=== PATIENT | male | born 1945 | race Caucasian/White ===

== ENCOUNTER 2017-06-11 11:54 | Emergency (ER) | payer MEDICARE, OTHER ==
[2017-06-11] MEDS ORDERED: Balanced Salt Solution Ophth Irrig 30 ML Bottle ONE (12:15)
[2017-06-11] MEDS ORDERED: Tetracaine HCl/PF 0.5% 4 ML Bottle ONE (12:15)
[2017-06-11] MEDS ORDERED: Acetaminophen/HYDROcodone 325-5 MG Tab PO ONE (12:31)
--- NOTE | 2017-06-11 12:38 | EDM.PDOC ---
ED HPI GENERAL MEDICAL PROBLEM - General Chief Complaint: Eye Problems Stated Complaint: eye pain Time Seen by Provider: 06/11/17 12:10 Source of Information: Reports: Patient History Limitations: Reports: No Limitations - History of Present Illness INITIAL COMMENTS - FREE TEXT/NARRATIVE: Patient is a 72-year-old who was brought in by family with chief complaint of left eye pain state pain is about 8 out of 10 a patient states that this has been going on for about 2 weeks but not as severe and after a couple hours with a contact lens it disappears but today it intensify he remove the lens and the pain was 8 out of 10 he came in for evaluation evaluation revealed laceration of cornea. 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 - Related Data Allergies Allergy/AdvReac Type Severity Reaction Status Date / Time No Known Allergies Allergy Verified 06/11/17 12:03 Home Meds: Home Meds Aspirin 325 mg PO DAILY 06/11/17 [History] Meloxicam 15 mg PO DAILY 06/11/17 [History] Pramipexole [Mirapex] 1 mg PO BID 06/11/17 [History] Ranitidine HCl [Ranitidine] 150 mg PO BID 06/11/17 [History] Rosuvastatin [Crestor] 20 mg PO DAILY 06/11/17 [History] ED ROS GENERAL - Review of Systems Review Of Systems: See Below Constitutional: Reports: No Symptoms HEENT: Reports: Contact Lenses, Eye Pain Respiratory: Reports: No Symptoms Cardiovascular: Reports: No Symptoms Endocrine: Reports: No Symptoms GI/Abdominal: Reports: No Symptoms : Reports: No Symptoms Musculoskeletal: Reports: No Symptoms Skin: Reports: No Symptoms Neurological: Reports: No Symptoms ED EXAM GENERAL W FULL EYE - Physical Exam Exam: See Below Exam Limited By: No Limitations General Appearance: Alert, WD/WN, Moderate Distress Eye Exam: Left Eye: Corneal Abrasion (At 9:00), Bilateral Eye: Abnormal EOM, Abnormal Pupil, Normal Inspection Eyelids: Bilateral: Normal Appearance Conjunctiva & Sclera: Right: Conjunctival Edema, Discharge Cornea Exam: Right: Examined with Flourescein (Corneal abrasion), Left: Corneal Abrasion Extraocular Movements: Bilateral: Intact Pupils: Normal Accommodation Pupillary Size: Bilateral: 3 mm Pupillary Reaction: Bilateral: Brisk Ears: Normal External Exam, Normal Canal, Hearing Grossly Normal, Normal TMs Nose: Normal Inspection, Normal Mucosa, No Blood Throat/Mouth: Normal Inspection, Normal Lips, Normal Teeth, Normal Gums, Normal Oropharynx, Normal Voice, No Airway Compromise Head: Atraumatic, Normocephalic Neck: Normal Inspection, Supple, Non-Tender, Full Range of Motion Respiratory/Chest: No Respiratory Distress, Lungs Clear, Normal Breath Sounds, No Accessory Muscle Use, Chest Non-Tender Cardiovascular: Normal Peripheral Pulses, Regular Rate, Rhythm, No Edema, No Gallop, No JVD, No Murmur, No Rub GI/Abdominal: Normal Bowel Sounds, Soft, Non-Tender, No Organomegaly, No Distention, No Abnormal Bruit, No Mass (Male) Exam: Deferred Rectal (Males) Exam: Deferred Back Exam: Normal Inspection, Full Range of Motion, NT Extremities: Normal Inspection, Normal Range of Motion, Non-Tender, Normal Capillary Refill, No Pedal Edema Neurological: Alert, Oriented, CN II-XII Intact, Normal Cognition, Normal Gait, Normal Reflexes, No Motor/Sensory Deficits Psychiatric: Normal Affect, Normal Mood Skin Exam: Warm, Dry, Intact, Normal Color, No Rash Course - Vital Signs Last Recorded V/S: Last Vital Signs Temp 98.6 F 06/11/17 11:54 Pulse 66 06/11/17 11:54 Resp 16 06/11/17 11:54 BP 152/79 H 06/11/17 11:54 Pulse Ox 95 06/11/17 11:54 - Orders/Labs/Meds Orders: Active Orders 24 hr Category Date Time Status Acetaminophen/HYDROcodone [[place] 325-5 MG] Med 06/11/17 12:31 Once 2 tab PO ONETIME ONE Gentamicin [[place] 0.3% Ophth Oint] Med 06/11/17 18:00 Active 1 gm EYELF TID Medication Orders Gentamicin Sulfate ([place] 0.3% Ophth Oint) 1 gm EYELF TID [facility] Meds: Medications Generic Name Dose Route Start Last Admin Trade Name Chuyq PRN Reason Stop Dose Admin Gentamicin Sulfate 1 gm 06/11/17 18:00 Gentak 0.3% Ophth Oint EYELF TID JANNA Discontinued Medications Generic Name Dose Route Start Last Admin Trade Name Jeanne PRN Reason Stop Dose Admin Balanced Salt Solution Confirm 06/11/17 12:15 06/11/17 12:28 Eye Stream Eye Rinse Administered 06/11/17 12:16 15 ml Dose Administration 30 ml .ROUTE .STK-MED ONE Tetracaine HCl Confirm 06/11/17 12:15 06/11/17 12:27 Tetracaine 0.5% Steri-Unit Dorys Administered 06/11/17 12:16 2 drop Dose Administration 4 ml .ROUTE .STK-MED ONE Departure - Departure Time of Disposition: 12:44 Disposition: Home, Self-Care 01 Condition: Fair Clinical Impression: Corneal abrasion Corneal abrasion due to contact lens Qualifiers: Laterality: left Qualified Code(s): H18.822 - Corneal disorder due to contact lens, left eye - Discharge Information Instructions: Corneal Abrasion, [id number] Referrals: PCP,Unknown [Primary Care Provider] - Care Plan Goals: Patient will be sent home on an eye patch with gentamicin ointment to apply every 4 hours every 6 hours also will send him home with tramadol for pain relief - My Orders Last 24 Hours: My Active Orders 06/11/17 12:31 Acetaminophen/HYDROcodone [[place] 325-5 MG] 2 tab PO ONETIME ONE 06/11/17 18:00 Gentamicin [[place] 0.3% Ophth Oint] 1 gm EYELF TID - Assessment/Plan Last 24 Hours: My Active Orders 06/11/17 12:31 Acetaminophen/HYDROcodone [[place] 325-5 MG] 2 tab PO ONETIME ONE 06/11/17 18:00 Gentamicin [[place] 0.3% Ophth Oint] 1 gm EYELF TID
== END 2017-06-11 13:15 | disposition home or self-care (01) ==
LOC: LL.ED 11:54
DX: H18.822 Corneal disorder due to contact lens, left eye (principal); Z79.82 Long term (current) use of aspirin; Z79.899 Other long term (current) drug therapy
CPT/HCPCS: 99283; A9270-GY

== ENCOUNTER → 2019-01-31 | Outpatient (CLI) | payer OTHER, MEDICARE | LOC: LL.DI 11:15 | PROVIDERS: ATTEND Physician Assistant | DX: M25.511 Pain in right shoulder (principal); G89.29 Other chronic pain; M19.011 Primary osteoarthritis, right shoulder | CPT/HCPCS: 73030-RT ==

== ENCOUNTER 2020-08-04 08:48 | Emergency (ER) | payer OTHER, MEDICARE ==
--- NOTE | 2020-08-04 09:09 | EDM.PDOC ---
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 had him come in today to get the wound checked as it was "kind of deep". 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(s) Right Arm Pain Score (Numeric/FACES): 3 - Related Data Allergies Allergy/AdvReac Type Severity Reaction Status Date / Time No Known Allergies Allergy Verified 08/04/20 08:49 Home Meds: Home Meds Aspirin 325 mg PO DAILY 06/11/17 [History] Meloxicam 15 mg PO DAILY 06/11/17 [History] Pramipexole [Mirapex] 1 mg PO BID 06/11/17 [History] Rosuvastatin [Crestor] 20 mg PO DAILY 06/11/17 [History] Omeprazole 20 mg PO DAILY 08/04/20 [History] Past Medical History HEENT History: Reports: Impaired Vision Review of Systems - Review of Systems Review Of Systems: See Below Constitutional: Reports: No Symptoms Skin: Reports: Other (right arm laceration) Neurological: Reports: No Symptoms. Denies: Numbness, Tingling, Weakness Psychiatric: Reports: No Symptoms ED EXAM, GENERAL - Physical Exam Exam: See Below General Appearance: Alert, WD/WN, No Apparent Distress Eye Exam: Bilateral Eye: EOMI, PERRL Ears: Hearing Grossly Normal Head: Atraumatic, Normocephalic Neck: Supple Respiratory/Chest: No Respiratory Distress Extremities: Other (2.5 cm laceration inner right forearm/mid section No deformity. Tendon function intact. ) Neurological: Alert, Oriented, Normal Cognition, Normal Gait, No Motor/Sensory Deficits Psychiatric: Normal Affect, Normal Mood Skin Exam: Warm ED TRAUMA EXTREMITY PROCEDURES - Laceration/Wound Repair Right Lower Ventral Arm Lac/Wound Length In cm: 2.5 Appearance: Subcutaneous, Linear, Clean Distal NVT: Neuro & Vascular Intact, No Tendon Injury Anesthetic Type: Local Local Anesthesia - Lidocaine (Xylocaine): 1% Plain Local Anesthetic Volume: 2cc Skin Prep: Providone-Iodine (Betadine) Exploration/Debridement/Repair: Wound Explored, In a Bloodless Field, No Foreign Material Found Closed With: Sutures Suture Size: 3-0 # of Sutures: 3 Suture Type: Nylon, Interrupted Sterile Dressing Applied: Nurse Tetanus Status Addressed: Yes Complications: No Course - Vital Signs Last Recorded V/S: Last Vital Signs Temp 36.6 C 08/04/20 08:53 Pulse 58 L 08/04/20 08:53 Resp 18 08/04/20 08:53 BP 118/64 08/04/20 08:53 Pulse Ox 95 08/04/20 08:53 - Orders/Labs/Meds Orders: Active Orders 24 hr Category Date Time Status Vaccines to be Administered [RC] PER UNIT ROUTINE Care 08/04/20 10:34 Active Meds: Medications Discontinued Medications Generic Name Dose Route Start Last Admin Trade Name Jeanne PRN Reason Stop Dose Admin Diphtheria/Tetanus/Acell Pertussis 0.5 ml 08/04/20 10:33 08/04/20 10:36 Diphtheria,Pertussis(Acell),Tetanus Vaccine 0.5 Ml Syringe IM 08/04/20 10:34 0.5 ml .ONCE ONE Administration Lidocaine HCl 5 ml 08/04/20 10:38 08/04/20 10:42 Lidocaine 1% 5 Ml Sdv INJECT 08/04/20 10:39 5 ml ONETIME ONE Administration Neomycin/Polymyxin/Bacitracin 1 each 08/04/20 10:51 08/04/20 10:52 Bacitracin/Neomycin/Polymyxin B Oint 0.9 Gm U/D Packet TOP 08/04/20 10:52 1 each ONETIME ONE Administration Neomycin/Polymyxin/Bacitracin Confirm 08/04/20 10:51 08/04/20 10:53 Bacitracin/Neomycin/Polymyxin B Oint 0.9 Gm U/D Packet Administered 08/04/20 10:52 Not Given Dose 1 each .ROUTE .STK-MED ONE - Re-Assessments/Exams Free Text/Narrative Re-Assessment/Exam: 08/04/20 11:10 Wound less than 12 hours old. Soaked extensively in Betadine solution. Three interrupted sutures placed for wound closure. Tetanus updated. Wound care reviewed. Signs of infection reviewed. To have sutures out next Tuesday. To follow up this week as needed if any concerns/signs of infection develop. Departure - Departure Time of Disposition: 11:04 Disposition: Home, Self-Care 01 Condition: Good Clinical Impression: Forearm laceration Qualifiers: Encounter type: initial encounter Laterality: right Qualified Code(s): S51.811A - Laceration without foreign body of right forearm, initial encounter - Discharge Information *COPY OF PRESCRIPTION DRUG MONITORING REPORT IN PATIENT JEOVANY: Not Applicable Instructions: Laceration Care, Adult, [id number] Referrals: PCP,Unknown [Primary Care Provider] - Forms: ED Department Discharge Additional Instructions: Sutures out next Tuesday! We take them out for no additional cost at the hospital clinic. Call and arrange time to come in. Follow up as needed if you have any problems/concerns such as signs of infection as we discussed. Call if you have questions. Sepsis Event Note (ED) - Evaluation Sepsis Screening Result: No Definite Risk - Focused Exam Vital Signs: Vital Signs Temp Pulse Resp BP Pulse Ox 08/04/20 08:53 36.6 C 58 L 18 118/64 95 - My Orders Last 24 Hours: My Active Orders 08/04/20 10:34 Vaccines to be Administered [RC] PER UNIT ROUTINE - Assessment/Plan Last 24 Hours: My Active Orders 08/04/20 10:34 Vaccines to be Administered [RC] PER UNIT ROUTINE
[2020-08-04] MEDS: Diphtheria,Pertussis(Acell),Tetanus Vaccine 0.5 ML Syringe IM ONE (10:36)
[2020-08-04] MEDS: Bacitracin/Neomycin/Polymyxin B Oint 0.9 GM U/D Packet TOP ONE (10:52)
[2020-08-04] MEDS: Bacitracin/Neomycin/Polymyxin B Oint 0.9 GM U/D Packet ONE (10:53)
== END 2020-08-04 11:14 | disposition home or self-care (01) ==
LOC: LL.ED 08:48
DX: S51.811A Laceration without foreign body of right forearm, initial encounter (principal); Z79.82 Long term (current) use of aspirin; Z79.899 Other long term (current) drug therapy; Z23 Encounter for immunization; W26.8XXA Contact with other sharp object(s), not elsewhere classified, initial encounter
CPT/HCPCS: 12001; 90471; 90715; 99282-25; 99283

== ENCOUNTER 2020-12-13 17:55 | Emergency (ER) | payer OTHER, MEDICARE ==
--- NOTE | 2020-12-13 19:03 | EDM.PDOC ---
ED HPI GENERAL MEDICAL PROBLEM - General Chief Complaint: General Stated Complaint: SOB, fevers Time Seen by Provider: 12/13/20 18:45 Source of Information: Reports: Patient, Family History Limitations: Reports: No Limitations - History of Present Illness INITIAL COMMENTS - FREE TEXT/NARRATIVE: He presents to the emergency department for evaluation of fever and not feeling well. Been feeling very hot and measured a temperature of 99.8 at home. He reports headache, nasal congestion, sore throat, cough with whitish sputum, diffuse body aches and fatigue. No nausea, vomiting or diarrhea. No dysuria, urgency or frequency. Symptoms of been present for 3 days. He is a patient at the [facility]. He talked with them earlier this afternoon and was told to come to the ER. He has a history of coronary artery disease. Generalized Pain Score (Numeric/FACES): 5 - Related Data Allergies Allergy/AdvReac Type Severity Reaction Status Date / Time No Known Allergies Allergy Verified 12/13/20 18:58 Home Meds: Home Meds Aspirin 325 mg PO DAILY 06/11/17 [History] Meloxicam 15 mg PO DAILY 06/11/17 [History] Pramipexole [Mirapex] 1 mg PO BID 06/11/17 [History] Rosuvastatin [Crestor] 20 mg PO DAILY 06/11/17 [History] Omeprazole 20 mg PO DAILY 08/04/20 [History] Past Medical History HEENT History: Reports: Hard of Hearing, Impaired Vision ED ROS GENERAL - Review of Systems Review Of Systems: See Below Constitutional: Reports: Fever, Chills HEENT: Reports: Ear Pain, Nose Pain, Throat Pain Respiratory: Reports: Shortness of Breath, Cough Cardiovascular: Denies: Chest Pain, Palpitations Endocrine: Reports: Fatigue GI/Abdominal: Denies: Abdominal Pain, Diarrhea, Nausea, Vomiting : Denies: Dysuria, Frequency, Urgency Musculoskeletal: Reports: Muscle Pain Skin: Reports: No Symptoms Neurological: Denies: Confusion, Dizziness ED EXAM, GENERAL - Physical Exam Exam: See Below Exam Limited By: No Limitations General Appearance: Alert, WD/WN, No Apparent Distress Ears: Normal External Exam, Normal Canal, Hearing Grossly Normal, Normal TMs Nose: Normal Inspection, Normal Mucosa, No Blood Throat/Mouth: Normal Inspection, Normal Lips, Normal Teeth, Normal Gums, Normal Oropharynx, No Airway Compromise Head: Atraumatic, Normocephalic Neck: Supple. No: Lymphadenopathy (L), Lymphadenopathy (R) Respiratory/Chest: No Respiratory Distress, Lungs Clear, Normal Breath Sounds Cardiovascular: Regular Rate, Rhythm, No Murmur GI/Abdominal: Normal Bowel Sounds, Soft, Non-Tender #1 Interpretation EKG Date: 12/13/20 Time: 20:00 EKG Interpretation Comments: Accelerated junctional rhythm. No ST or T wave changes. No apparent acute process. Possible old anterior infarct. Course - Vital Signs Last Recorded V/S: Last Vital Signs Temp 37.1 C 12/13/20 17:56 Pulse 64 12/13/20 19:28 Resp 31 H 12/13/20 19:28 BP 136/63 12/13/20 19:28 Pulse Ox 91 L 12/13/20 19:28 - Orders/Labs/Meds Orders: Active Orders 24 hr Category Date Time Status EKG Documentation Completion [RC] ASDIRECTED Care 12/13/20 19:46 Active Chest 1V Frontal [CR] Stat Exams 12/13/20 19:45 Taken Isolation [COMM] Routine Oth 12/13/20 18:58 Active Labs: Laboratory Tests 12/13/20 12/13/20 12/13/20 Range/Units 18:57 19:10 19:10 WBC 6.0 (4.0-10.2) K/uL RBC 3.89 L (4.33-5.41) M/uL Hgb 11.8 L (13.1-16.8) g/dL Hct 36.4 L (39.0-49.0) % MCV 93.6 (84.0-98.0) fL MCH 30.3 (28.2-33.3) pg MCHC 32.4 (31.7-36.0) g/dL RDW 15.6 H (11.2-14.1) % Plt Count 128 L (150-350) K/uL Neut % (Auto) 77.4 (45.0-80.0) % Lymph % (Auto) 14.9 (10.0-50.0) % [place] % (Auto) 7.5 (2.0-14.0) % Eos % (Auto) 0.0 (0.0-5.0) % Baso % (Auto) 0.2 (0.0-2.0) % Neut # (Auto) 4.67 (1.40-7.00) K/uL Lymph # (Auto) 0.90 (0.50-3.50) K/uL [place] # (Auto) 0.45 (0.00-1.00) K/uL Eos # (Auto) 0.00 (0.00-0.50) K/uL Baso # (Auto) 0.01 (0.00-0.20) K/uL Sodium 141 (136-145) mmol/L Potassium 3.9 (3.5-5.1) mmol/L Chloride 105 (98-107) mmol/L Carbon Dioxide 28.6 (21.0-32.0) mmol/L Anion Gap 7.4 (7-15) meq/L BUN 18 (7-18) mg/dL Creatinine 1.11 (0.51-1.17) mg/dL Est Cr Clr Drug Dosing 59.27 mL/min Estimated GFR (MDRD) > 60 mL/min Glucose 86 (70-99) mg/dL Calcium 8.2 L (8.5-10.1) mg/dL Total Bilirubin 0.9 (0.2-1.0) mg/dL AST 53 H (15-37) U/L ALT 56 (12-78) U/L Alkaline Phosphatase 53 (46-116) IU/L Troponin I High Sens (<=76) ng/L NT-Pro-B Natriuret Pep (0-125) pg/mL Total Protein 6.7 (6.4-8.2) g/dL Albumin 3.4 (3.4-5.0) g/dL SARS-CoV-2 RNA ([facility]) Positive H (NEGATIVE) 12/13/20 Range/Units 19:10 WBC (4.0-10.2) K/uL RBC (4.33-5.41) M/uL Hgb (13.1-16.8) g/dL Hct (39.0-49.0) % MCV (84.0-98.0) fL MCH (28.2-33.3) pg MCHC (31.7-36.0) g/dL RDW (11.2-14.1) % Plt Count (150-350) K/uL Neut % (Auto) (45.0-80.0) % Lymph % (Auto) (10.0-50.0) % [place] % (Auto) (2.0-14.0) % Eos % (Auto) (0.0-5.0) % Baso % (Auto) (0.0-2.0) % Neut # (Auto) (1.40-7.00) K/uL Lymph # (Auto) (0.50-3.50) K/uL [place] # (Auto) (0.00-1.00) K/uL Eos # (Auto) (0.00-0.50) K/uL Baso # (Auto) (0.00-0.20) K/uL Sodium (136-145) mmol/L Potassium (3.5-5.1) mmol/L Chloride (98-107) mmol/L Carbon Dioxide (21.0-32.0) mmol/L Anion Gap (7-15) meq/L BUN (7-18) mg/dL Creatinine (0.51-1.17) mg/dL Est Cr Clr Drug Dosing mL/min Estimated GFR (MDRD) mL/min Glucose (70-99) mg/dL Calcium (8.5-10.1) mg/dL Total Bilirubin (0.2-1.0) mg/dL AST (15-37) U/L ALT (12-78) U/L Alkaline Phosphatase (46-116) IU/L Troponin I High Sens 33 (<=76) ng/L NT-Pro-B Natriuret Pep 215 H (0-125) pg/mL Total Protein (6.4-8.2) g/dL Albumin (3.4-5.0) g/dL SARS-CoV-2 RNA ([facility]) (NEGATIVE) - Radiology Interpretation Free Text/Narrative:: Portable chest x-ray shows normal cardiac silhouette. No significant infiltrates. No free air. - Re-Assessments/Exams Free Text/Narrative Re-Assessment/Exam: Patient was placed on oxygen and did feel his breathing improved, although he was saturating in the low 90s on arrival. Because of his complaining of some tightness in the chest did check EKG and cardiac enzymes which were unremarkable. A BNP was slightly elevated. Covid test was positive. Influenza was negative. Labs were otherwise unremarkable. Will discharge to home with home quarantine. Departure - Departure Time of Disposition: 20:35 Disposition: Home, Self-Care 01 Condition: Good Clinical Impression: COVID-19 - Discharge Information *PRESCRIPTION DRUG MONITORING PROGRAM REVIEWED*: Not Applicable *COPY OF PRESCRIPTION DRUG MONITORING REPORT IN PATIENT JEOVANY: Not Applicable Instructions: COVID-19 Frequently Asked Questions Forms: ED Department Discharge Care Plan Goals: Quarantine at home until symptoms have been gone for 1 week. Push fluids. Resume usual home medications. Call or follow-up if symptoms are worsening. Sepsis Event Note (ED) - Evaluation Sepsis Screening Result: No Definite Risk - Focused Exam Vital Signs: Vital Signs Temp Pulse Resp BP Pulse Ox 12/13/20 19:28 64 31 H 136/63 91 L 12/13/20 17:56 37.1 C 68 28 H 117/52 L 92 L - Problem List & Annotations (1) COVID-19 SNOMED Code(s): 653731192 Code(s): U07.1 - COVID-19 Status: Acute Current Visit: Yes - My Orders Last 24 Hours: My Active Orders 12/13/20 18:58 Isolation [COMM] Routine 12/13/20 19:45 Chest 1V Frontal [CR] Stat 12/13/20 19:46 EKG Documentation Completion [RC] ASDIRECTED - Assessment/Plan Last 24 Hours: My Active Orders 12/13/20 18:58 Isolation [COMM] Routine 12/13/20 19:45 Chest 1V Frontal [CR] Stat 12/13/20 19:46 EKG Documentation Completion [RC] ASDIRECTED Plan: Quarantine at home until symptoms have been gone for 1 week. Push fluids. Resume usual home medications. Call or follow-up if symptoms are worsening.
[2020-12-13 19:35] LABS: ANION GAP 7.4 meq/L (7-15); CHLORIDE,CL 105 mmol/L (98-107); SODIUM,NA 141 mmol/L (136-145)
== END 2020-12-13 20:45 | disposition home or self-care (01) ==
LOC: LL.ED 17:55
DX: U07.1 COVID-19 (principal); Z79.82 Long term (current) use of aspirin; Z79.899 Other long term (current) drug therapy
CPT/HCPCS: 36415; 71045; 80053; 83880; 84484; 85025; 87804; 93005; 93010; 99284; 99284-25; U0002

== ENCOUNTER 2020-12-15 11:17 | Inpatient (IN) | payer OTHER, MEDICARE ==
[2020-12-15] MEDS ORDERED: EPINEPHrine 1 MG/1 ML Amp IM PRN (11:30)
[2020-12-15] MEDS ORDERED: methylPREDNISolone Sodium Succinate 125 MG/2 ML SDV IVPUSH PRN (11:30)
[2020-12-15] MEDS ORDERED: Famotidine 20 MG/2 ML SDV IVPUSH PRN (11:30)
[2020-12-15] MEDS ORDERED: diphenhydrAMINE 50 MG/ML SDV IVPUSH PRN (11:30)
--- NOTE | 2020-12-15 13:32 | PCM.HP.2 ---
H&P History of Present Illness - General Date of Service: 12/15/20 Admit Problem/Dx: Admission Diagnosis/Problem Admission Diagnosis/Problem Shortness of breath Source of Information: Patient History Limitations: Reports: No Limitations - History of Present Illness Initial Comments - Free Text/Narative: He was seen in the emergency department 3 nights ago and is positive for Covid. He has shortness of breath. He came in today for monoclonal antibodies but his O2 sat was in the 70s. In discussion with him his breathing does seem somewhat worse, especially at night. Decision was made to admit to the hospital. He does have a history of coronary artery disease and hypertension. See ED note from December 12 for any additional details. - Related Data Allergies/Adverse Reactions: Allergies Allergy/AdvReac Type Severity Reaction Status Date / Time No Known Allergies Allergy Verified 12/13/20 18:58 Home Medications: Home Meds Aspirin 325 mg PO DAILY 06/11/17 [History] Meloxicam 15 mg PO DAILY 06/11/17 [History] Pramipexole [Mirapex] 1 mg PO BID 06/11/17 [History] Rosuvastatin [Crestor] 20 mg PO DAILY 06/11/17 [History] Omeprazole 20 mg PO DAILY 08/04/20 [History] Budesonide/Formoterol Fumarate [Symbicort 80-4.5 MCG] 2 puff INH BEDTIME 12/15/20 [History] Fluticasone Propionate [Flovent] 2 spray NASBOTH BEDTIME 12/15/20 [History] Isosorbide Mononitrate [Imdur] 30 mg PO DAILY 12/15/20 [History] Nitroglycerin 1 tab SL ASDIRECTED PRN 12/15/20 [History] amLODIPine [Norvasc] 10 mg PO DAILY 12/15/20 [History] predniSONE [Prednisone] 7.5 mg PO DAILY 12/15/20 [History] Past Medical History HEENT History: Reports: Hard of Hearing, Impaired Vision Cardiovascular History: Reports: CT Respiratory History: Reports: Sleep Apnea, Other (See Below) Other Respiratory History: wears CPAP at HS - Past Surgical History Cardiovascular Surgical History: Reports: Coronary Artery Bypass, Other (See Below) Other Cardiovascular Surgeries/Procedures: open hrt surgery 4 bypass, CT 2018 Musculoskeletal Surgical History: Reports: Shoulder Surgery, Other (See Below) Other Musculoskeletal Surgeries/Procedures:: 2020 revervse rotator cuff of right shoulder H&P Review of Systems - Review of Systems: Review Of Systems: See Below General: Denies: Fever, Chills HEENT: Denies: Headaches, Visual Changes Pulmonary: Reports: Shortness of Breath, Cough Cardiovascular: Denies: Chest Pain, Palpitations Gastrointestinal: Denies: Abdominal Pain, Nausea, Vomiting Genitourinary: Denies: Dysuria, Frequency, Urgency Neurological: Denies: Confusion, Dizziness, Headache Exam - Exam Exam: See Below - Exam General: Alert, Oriented HEENT: Conjunctiva Clear Neck: Trachea Midline Lungs: Other (Breathing is slightly decreased but good air movement throughout and clear to auscultation.) Cardiovascular: Regular Rate, Regular Rhythm GI/Abdominal Exam: Normal Bowel Sounds, Soft, Non-Tender, No Mass - Patient Data Result Diagrams: 12/15/20 14:20 12/15/20 14:20 *Q Meaningful Use (ADM) - VTE *Q VTE Criteria *Q: 01 - Problem List (1) Coronary artery disease SNOMED Code(s): 65785215 ICD Code: I25.10 - ATHSCL HEART DISEASE OF [place] CORONARY ARTERY W/O ANG PCTRS Status: Acute Current Visit: Yes (2) Essential hypertension SNOMED Code(s): 92281636 ICD Code: I10 - ESSENTIAL (PRIMARY) HYPERTENSION Status: Acute Current Visit: Yes (3) COVID-19 SNOMED Code(s): 679512026 ICD Code: U07.1 - COVID-19 Status: Acute Current Visit: No Problem List Initiated/Reviewed/Updated: Yes Orders Last 24hrs: Active Orders 24 hr Category Date Time Status Patient Status [ADT] Routine ADT 12/15/20 13:12 Ordered Antiembolic Devices [RC] .Routine Care 12/15/20 13:18 Ordered Height and Weight [RC] DAILY Care 12/15/20 13:11 Ordered Intake and Output [RC] QSHIFT Care 12/15/20 13:16 Ordered Oxygen Therapy [RC] CONTINUOUS Care 12/15/20 13:16 Ordered Pulse Oximetry [RC] CONTINUOUS Care 12/15/20 13:16 Ordered Up ad Soha [RC] ASDIRECTED Care 12/15/20 13:11 Ordered VTE/DVT Education [RC] PER UNIT ROUTINE Care 12/15/20 13:18 Ordered Vital Signs [RC] Q15M Care 12/15/20 11:30 Active Vital Signs [RC] Q4H Care 12/15/20 13:12 Ordered Regular Diet [DIET] Diet 12/15/20 Lunch Ordered BILIRUBIN DIRECT [CHEM] DAILY Lab 12/15/20 13:30 Ordered BILIRUBIN DIRECT [CHEM] DAILY Lab 12/16/20 13:30 Ordered BILIRUBIN DIRECT [CHEM] DAILY Lab 12/17/20 13:30 Ordered BILIRUBIN DIRECT [CHEM] DAILY Lab 12/18/20 13:30 Ordered BILIRUBIN DIRECT [CHEM] DAILY Lab 12/19/20 13:30 Ordered CBC WITH AUTO DIFF [HEME] Routine Lab 12/15/20 13:11 Ordered COMPREHENSIVE METABOLIC PN,CMP [CHEM] DAILY Lab 12/15/20 13:30 Ordered COMPREHENSIVE METABOLIC PN,CMP [CHEM] DAILY Lab 12/16/20 13:30 Ordered COMPREHENSIVE METABOLIC PN,CMP [CHEM] DAILY Lab 12/17/20 13:30 Ordered COMPREHENSIVE METABOLIC PN,CMP [CHEM] DAILY Lab 12/18/20 13:30 Ordered COMPREHENSIVE METABOLIC PN,CMP [CHEM] DAILY Lab 12/19/20 13:30 Ordered INR,PT,PROTHROMBIN TIME [COAG] Routine Lab 12/15/20 13:11 Ordered Acetaminophen [TylenoL] Med 12/15/20 13:11 Ordered 650 mg PO Q4H PRN Calcium Carbonate [Tums] Med 12/15/20 13:11 Ordered 500 mg PO Q4H PRN EPINEPHrine [Adrenalin] Med 12/15/20 11:30 Active 0.3 mg IM ONETIME PRN Enoxaparin [Lovenox] Med 12/15/20 13:15 Ordered 40 mg SUBCUT Q12H Famotidine [Pepcid] Med 12/15/20 11:30 Active 20 mg IVPUSH ONETIME PRN Remdesivir 200 mg Med 12/15/20 13:21 Ordered Sodium Chloride 0.9% [Normal Saline] 250 ml IV ONETIME Sodium Chloride 0.9% [Saline Flush] Med 12/15/20 11:30 Active 30 ml FLUSH ASDIRECTED dexAMETHasone Med 12/15/20 13:30 Ordered 6 mg PO DAILY diphenhydrAMINE [Benadryl] Med 12/15/20 11:30 Active 50 mg IVPUSH ONETIME PRN methylPREDNISolone Sod Succ [Solu-MEDROL] Med 12/15/20 11:30 Active 125 mg IVPUSH ONETIME PRN DVT/VTE Prophylaxis Reflex [OM.PC] Routine Oth 12/15/20 13:11 Ordered Resuscitation Status Routine Resus Stat 12/15/20 13:11 Ordered Medication Orders Diphenhydramine HCl (Diphenhydramine 50 Mg/Ml Sdv) 50 mg IVPUSH ONETIME PRN PRN Reason: hypersensitivity reaction Epinephrine HCl (Epinephrine 1 Mg/1 Ml Amp) 0.3 mg IM ONETIME PRN PRN Reason: hypersensitivity reaction Famotidine (Famotidine 20 Mg/2 Ml Sdv) 20 mg IVPUSH ONETIME PRN PRN Reason: hypersensitivity reaction Methylprednisolone Sodium Succinate (Methylprednisolone Sodium Succinate 125 Mg/2 Ml Sdv) 125 mg IVPUSH ONETIME PRN PRN Reason: hypersensitivity reaction Sodium Chloride (Sodium Chloride 0.9% 10 Ml Syringe) 30 ml FLUSH ASDIRECTED JANNA Assessment/Plan Comment:: He is admitted as an inpatient for supplemental oxygen. Keep O2 sats above 90%. We will start remdesivir 20 mg today then 100 mg daily. Dexamethasone 6 mg daily. Resume usual home medications, but will stop the Medrol he was started on 3 days ago.
[2020-12-15 14:52] LABS: ANION GAP 8.4 meq/L (7-15); CHLORIDE,CL 105 mmol/L (98-107); SODIUM,NA 140 mmol/L (136-145)
[2020-12-15] MEDS ORDERED: Acetaminophen 325 MG Tab PO PRN (15:00)
[2020-12-15] MEDS ORDERED: REMDESIVIR 200 MG in Sodium Chloride 0.9% 250 ML IV ONE (15:00)
[2020-12-15] MEDS ORDERED: Calcium Carbonate 500 MG Tab.Chew PO PRN (15:00)
[2020-12-15] MEDS ORDERED: Enoxaparin 40 MG/0.4 ML Syringe SUBCUT ONE (15:00)
[2020-12-15] MEDS: Dexamethasone 2 MG Tab PO SCH (15:15)
[2020-12-15] MEDS ORDERED: guaiFENesin 600 MG Tab.ER PO ONE (16:00)
[2020-12-15] MEDS: Albuterol/Ipratropium 4 GM Inhalation Spray INH SCH ×2 (16:25→19:39)
[2020-12-15] MEDS: Benzonatate 100 MG Cap PO SCH ×2 (16:27→19:40)
[2020-12-15] MEDS ORDERED: Nitroglycerin 0.4 MG Tab.SL SL PRN (16:48)
[2020-12-15] MEDS: Fluticasone Propionate Nasal Spray 16 GM Bottle NASBOTH SCH (19:39)
[2020-12-16] MEDS ORDERED: Rosuvastatin 10 MG Tab PO SCH (08:00)
[2020-12-16] MEDS ORDERED: amLODIPine 5 MG Tab PO SCH (08:00)
[2020-12-16] MEDS ORDERED: Isosorbide Mononitrate 30 MG Tab.ER PO SCH (08:00)
[2020-12-16] MEDS ORDERED: Omeprazole 20 MG Cap.CR PO SCH (08:00)
[2020-12-16] MEDS: Enoxaparin 40 MG/0.4 ML Syringe SUBCUT SCH ×2 (08:21→20:04)
[2020-12-16] MEDS: guaiFENesin 600 MG Tab.ER PO SCH ×2 (08:22→20:04)
[2020-12-16] MEDS: Benzonatate 100 MG Cap PO SCH ×3 (08:23→20:04)
[2020-12-16] MEDS: Dexamethasone 2 MG Tab PO SCH (08:24)
[2020-12-16] MEDS: Albuterol/Ipratropium 4 GM Inhalation Spray INH SCH ×3 (08:24→16:09)
--- NOTE | 2020-12-16 13:45 | PCM.PN ---
- General Info Date of Service: 12/16/20 Admission Dx/Problem (Free Text): Admission Diagnosis/Problem Admission Diagnosis/Problem Shortness of breath/hypoxemia related to acute Covid 19 infection Subjective Update: Patient feels ok when sitting. Says symptoms of SOB/cough have not worsened since admission. No new symptoms noted. Functional Status: Reports: Pain Controlled, Tolerating Diet, Ambulating (in patient care room), Urinating, Incentive Spirometry. Denies: New Symptoms - Review of Systems General: Reports: Fatigue, Malaise, Appetite (poor). Denies: Fever, Chills, Night Sweats HEENT: Reports: Sinus Congestion, Rhinitis. Denies: Dysphasia, Ear Pain, Eye Pain, Headaches, Sore Throat, Visual Changes Pulmonary: Reports: Shortness of Breath, Cough, Sputum. Denies: Pleuritic Chest Pain, Hemoptysis, Wheezing Cardiovascular: Reports: Dyspnea on Exertion. Denies: Chest Pain, Edema, Lightheadedness Gastrointestinal: Reports: No Symptoms Genitourinary: Reports: No Symptoms Musculoskeletal: Reports: No Symptoms Skin: Reports: No Symptoms Neurological: Reports: No Symptoms Psychiatric: Reports: No Symptoms - Patient Data Vitals - Most Recent: Last Vital Signs Temp 36.7 C 12/16/20 12:00 Pulse 62 12/16/20 12:00 Resp 32 H 12/16/20 12:00 BP 98/52 L 12/16/20 12:00 Pulse Ox 83 L 12/16/20 12:00 Weight - Most Recent: 97.522 kg I&O - Last 24 Hours: Intake & Output 12/15/20 12/16/20 12/16/20 22:59 06:59 14:59 Intake Total 530 Balance 530 Lab Results Last 24 Hours: Laboratory Results - last 24 hr 12/15/20 12/15/20 12/15/20 Range/Units 14:20 14:20 14:20 WBC 8.8 (4.0-10.2) K/uL RBC 4.18 L (4.33-5.41) M/uL Hgb 12.7 L (13.1-16.8) g/dL Hct 38.4 L (39.0-49.0) % MCV 91.9 (84.0-98.0) fL MCH 30.4 (28.2-33.3) pg MCHC 33.1 (31.7-36.0) g/dL RDW 15.7 H (11.2-14.1) % Plt Count 142 L (150-350) K/uL Neut % (Auto) 83.9 H (45.0-80.0) % Lymph % (Auto) 11.5 (10.0-50.0) % [place] % (Auto) 4.5 (2.0-14.0) % Eos % (Auto) 0.0 (0.0-5.0) % Baso % (Auto) 0.1 (0.0-2.0) % Neut # (Auto) 7.35 H (1.40-7.00) K/uL Lymph # (Auto) 1.01 (0.50-3.50) K/uL [place] # (Auto) 0.39 (0.00-1.00) K/uL Eos # (Auto) 0.00 (0.00-0.50) K/uL Baso # (Auto) 0.01 (0.00-0.20) K/uL PT 10.7 (9.5-12.0) SEC INR 1.1 Sodium 140 (136-145) mmol/L Potassium 3.8 (3.5-5.1) mmol/L Chloride 105 (98-107) mmol/L Carbon Dioxide 26.6 (21.0-32.0) mmol/L Anion Gap 8.4 (7-15) meq/L BUN 21 H (7-18) mg/dL Creatinine 1.17 (0.51-1.17) mg/dL Est Cr Clr Drug Dosing 56.23 mL/min Estimated GFR (MDRD) > 60 mL/min Glucose 84 (70-99) mg/dL Calcium 8.4 L (8.5-10.1) mg/dL Total Bilirubin 1.0 (0.2-1.0) mg/dL Direct Bilirubin 0.3 H (0.0-0.2) mg/dL AST 53 H (15-37) U/L ALT 48 (12-78) U/L Alkaline Phosphatase 53 (46-116) IU/L Total Protein 6.8 (6.4-8.2) g/dL Albumin 3.2 L (3.4-5.0) g/dL Med Orders - Current: Current Medications Acetaminophen (Acetaminophen 325 Mg Tab) 650 mg PO Q4H PRN PRN Reason: analgesia/fever Albuterol/Ipratropium (Albuterol/Ipratropium 4 Gm Inhalation [place]) 1 gm INH QID COUNT INCLUDES THE [facility] Last Admin: 12/16/20 12:13 Dose: 1 inhalation Documented by: Amlodipine Besylate (Amlodipine 5 Mg Tab) 10 mg PO DAILY COUNT INCLUDES THE [facility] Last Admin: 12/16/20 08:21 Dose: 10 mg Documented by: Benzonatate (Benzonatate 100 Mg Cap) 100 mg PO TID@0800,1400,2000 COUNT INCLUDES THE [facility] Last Admin: 12/16/20 08:23 Dose: 100 mg Documented by: Calcium Carbonate/Glycine (Calcium Carbonate 500 Mg Tab.Chew) 500 mg PO Q4H PRN PRN Reason: Dyspepsia Dexamethasone (Dexamethasone 2 Mg Tab) 6 mg PO DAILY COUNT INCLUDES THE [facility] Last Admin: 12/16/20 08:24 Dose: 6 mg Documented by: Enoxaparin Sodium (Enoxaparin 40 Mg/0.4 Ml Syringe) 40 mg SUBCUT Q12HR COUNT INCLUDES THE [facility] Last Admin: 12/16/20 08:21 Dose: 40 mg Documented by: Fluticasone Propionate (Fluticasone Propionate Nasal [place] 16 Gm Bottle) 0 gm NASBOTH BEDTIME COUNT INCLUDES THE [facility] Last Admin: 12/15/20 19:39 Dose: 2 spray Documented by: Guaifenesin (Guaifenesin 600 Mg Tab.Er) 600 mg PO Q12HR COUNT INCLUDES THE [facility] Last Admin: 12/16/20 08:22 Dose: 600 mg Documented by: Remdesivir 100 mg/ Sodium (Chloride) 100 mls @ 100 mls/hr IV Q24H COUNT INCLUDES THE [facility] Stop: 12/19/20 15:59 Isosorbide Mononitrate (Isosorbide Mononitrate 30 Mg Tab.Er) 30 mg PO DAILY COUNT INCLUDES THE [facility] Last Admin: 12/16/20 08:23 Dose: 30 mg Documented by: Meloxicam (Meloxicam 15 Mg Tab) 15 mg PO DAILY COUNT INCLUDES THE [facility] Last Admin: 12/16/20 08:22 Dose: 15 mg Documented by: Nitroglycerin (Nitroglycerin 0.4 Mg Tab.Sl) 0.4 mg SL ASDIRECTED PRN PRN Reason: Chest Pain Omeprazole (Omeprazole 20 Mg Cap.Cr) 20 mg PO DAILY COUNT INCLUDES THE [facility] Last Admin: 12/16/20 08:23 Dose: 20 mg Documented by: Pramipexole Dihydrochloride (Pramipexole 1 Mg Tab) 1 mg PO BID@0800,1999 COUNT INCLUDES THE [facility] Last Admin: 12/16/20 08:23 Dose: 1 mg Documented by: Rosuvastatin Calcium (Rosuvastatin 10 Mg Tab) 20 mg PO DAILY COUNT INCLUDES THE [facility] Last Admin: 12/16/20 08:22 Dose: 20 mg Documented by: Sodium Chloride (Sodium Chloride 0.9% 10 Ml Syringe) 30 ml FLUSH ASDIRECTED COUNT INCLUDES THE [facility] Discontinued Medications Enoxaparin Sodium (Enoxaparin 40 Mg/0.4 Ml Syringe) 40 mg SUBCUT ONETIME ONE Stop: 12/15/20 15:01 Last Admin: 12/15/20 15:13 Dose: 40 mg Documented by: Guaifenesin (Guaifenesin 600 Mg Tab.Er) 600 mg PO ONETIME ONE Stop: 12/15/20 16:01 Last Admin: 12/15/20 16:27 Dose: 600 mg Documented by: Bamlanivimab 700 mg/Etesevimab 1,400 mg/ Sodium Chloride 310 mls @ 310 mls/hr IV ONETIME ONE Stop: 12/15/20 12:29 Last Admin: 12/15/20 14:17 Dose: Not Given Documented by: Remdesivir 200 mg/ Sodium (Chloride) 250 mls @ 250 mls/hr IV ONETIME ONE Stop: 12/15/20 15:59 Last Admin: 12/15/20 15:13 Dose: 250 mls/hr Documented by: - Exam Quality Assessment: Supplemental Oxygen (15L), DVT Prophylaxis General: Alert, Oriented, Cooperative, No Acute Distress HEENT: Pupils Equal, Pupils Reactive, EOMI Neck: Supple Lungs: Clear to Auscultation, Normal Respiratory Effort, Other (No wheezes/rales/rhonchi noted on exam) Cardiovascular: Regular Rate, Regular Rhythm, No Murmurs GI/Abdominal Exam: Soft, Non-Tender, No Distention (Male) Exam: Deferred Back Exam: No: CVA Tenderness (L), CVA Tenderness (R), Muscle Spasm Extremities: Non-Tender, No Pedal Edema, Normal Capillary Refill Skin: Warm, Dry Neurological: No New Focal Deficit Psy/Mental Status: Alert, Normal Affect, Normal Mood - Patient Data Lab Results Last 24 hrs: Laboratory Results - last 24 hr 12/15/20 12/15/20 12/15/20 Range/Units 14:20 14:20 14:20 WBC 8.8 (4.0-10.2) K/uL RBC 4.18 L (4.33-5.41) M/uL Hgb 12.7 L (13.1-16.8) g/dL Hct 38.4 L (39.0-49.0) % MCV 91.9 (84.0-98.0) fL MCH 30.4 (28.2-33.3) pg MCHC 33.1 (31.7-36.0) g/dL RDW 15.7 H (11.2-14.1) % Plt Count 142 L (150-350) K/uL Neut % (Auto) 83.9 H (45.0-80.0) % Lymph % (Auto) 11.5 (10.0-50.0) % [place] % (Auto) 4.5 (2.0-14.0) % Eos % (Auto) 0.0 (0.0-5.0) % Baso % (Auto) 0.1 (0.0-2.0) % Neut # (Auto) 7.35 H (1.40-7.00) K/uL Lymph # (Auto) 1.01 (0.50-3.50) K/uL [place] # (Auto) 0.39 (0.00-1.00) K/uL Eos # (Auto) 0.00 (0.00-0.50) K/uL Baso # (Auto) 0.01 (0.00-0.20) K/uL PT 10.7 (9.5-12.0) SEC INR 1.1 Sodium 140 (136-145) mmol/L Potassium 3.8 (3.5-5.1) mmol/L Chloride 105 (98-107) mmol/L Carbon Dioxide 26.6 (21.0-32.0) mmol/L Anion Gap 8.4 (7-15) meq/L BUN 21 H (7-18) mg/dL Creatinine 1.17 (0.51-1.17) mg/dL Est Cr Clr Drug Dosing 56.23 mL/min Estimated GFR (MDRD) > 60 mL/min Glucose 84 (70-99) mg/dL Calcium 8.4 L (8.5-10.1) mg/dL Total Bilirubin 1.0 (0.2-1.0) mg/dL Direct Bilirubin 0.3 H (0.0-0.2) mg/dL AST 53 H (15-37) U/L ALT 48 (12-78) U/L Alkaline Phosphatase 53 (46-116) IU/L Total Protein 6.8 (6.4-8.2) g/dL Albumin 3.2 L (3.4-5.0) g/dL Result Diagrams: 12/15/20 14:20 12/15/20 14:20 Sepsis Event Note - Evaluation Sepsis Screening Result: No Definite Risk - Focused Exam Vital Signs: Vital Signs Temp Pulse Resp BP BP BP Pulse Ox 12/16/20 12:00 36.7 C 62 32 H 98/52 L 83 L 12/16/20 08:23 122/63 12/16/20 08:21 122/63 12/16/20 08:00 36.6 C 61 32 H 122/63 88 L 12/16/20 04:00 91 L - Problem List & Annotations (1) COVID-19 SNOMED Code(s): 837676266 Code(s): U07.1 - COVID-19 Status: Acute Priority: High Current Visit: No Annotation/Comment:: Acute Covid-19 infection. Receiving Dexamethasone. IV Bamlanivimab and Remdesivir. Supplemental O2. (2) Hypoxemia requiring supplemental oxygen SNOMED Code(s): 205881889 Code(s): R09.02 - HYPOXEMIA; Z99.81 - DEPENDENCE ON SUPPLEMENTAL OXYGEN Status: Acute Priority: High Current Visit: Yes Annotation/Comment:: Currently receiving 15L via [facility]. Stable O2 requirement. RR 32. O2 sats in high 80s with 91% recently. (3) Essential hypertension SNOMED Code(s): 08574639 Code(s): I10 - ESSENTIAL (PRIMARY) HYPERTENSION Status: Chronic Priority: Medium Current Visit: Yes Annotation/Comment:: Has been running a bit lower BPs since admission. 90-110/50s. Will hold some of patient's BP meds and continue to observe trends. (4) Coronary artery disease SNOMED Code(s): 49743356 Code(s): I25.10 - ATHSCL HEART DISEASE OF [place] CORONARY ARTERY W/O ANG PCTRS Status: Chronic Priority: Low Current Visit: No Qualifiers: Coronary Disease-Associated Artery/Lesion type: bypass graft [place] vs. tra nsplanted heart: [place] heart Associated angina: unspecified whether angina present Qualified Code(s): I25.810 - Atherosclerosis of coronary artery bypass graft(s) without angina pectoris Annotation/Comment:: No chest pain/anginal complaints. (5) GERD (gastroesophageal reflux disease) SNOMED Code(s): 216549727 Code(s): K21.9 - GASTRO-ESOPHAGEAL REFLUX DISEASE WITHOUT ESOPHAGITIS Status: Chronic Priority: Low Current Visit: No Qualifiers: Esophagitis presence: esophagitis presence not specified Qualified Code(s): K21.9 - Gastro-esophageal reflux disease without esophagitis Annotation/Comment:: Stable by history (6) Sleep apnea SNOMED Code(s): 34947218 Code(s): G47.30 - SLEEP APNEA, UNSPECIFIED Status: Acute Priority: Low Current Visit: No Qualifiers: Sleep apnea type: unspecified type Qualified Code(s): G47.30 - Sleep apnea, unspecified Annotation/Comment:: Has CPAP device with him. (7) Hyperlipemia SNOMED Code(s): 52102046 Code(s): E78.5 - HYPERLIPIDEMIA, UNSPECIFIED Status: Chronic Priority: Low Current Visit: No Qualifiers: Hyperlipidemia type: unspecified Qualified Code(s): E78.5 - Hyperlipidemia, unspecified Annotation/Comment:: Under therapy (8) Osteoarthritis SNOMED Code(s): 899369504 Code(s): M19.90 - UNSPECIFIED OSTEOARTHRITIS, UNSPECIFIED SITE Status: Chronic Priority: Low Current Visit: No Qualifiers: Osteoarthritis location: unspecified site Annotation/Comment:: Stable by history (9) Fibromyalgia SNOMED Code(s): 031364417 Code(s): M79.7 - FIBROMYALGIA Status: Chronic Priority: Low Current Visit: No Annotation/Comment:: stable by history (10) Hearing loss SNOMED Code(s): 25678760 Code(s): H91.90 - UNSPECIFIED HEARING LOSS, UNSPECIFIED EAR Status: Chronic Priority: Low Current Visit: No Qualifiers: Hearing loss type: unspecified (11) Obesity SNOMED Code(s): 535646404, 774072703 Code(s): E66.9 - OBESITY, UNSPECIFIED Status: Chronic Priority: Low Current Visit: No Qualifiers: Obesity type: unspecified obesity type (12) Polymyositis SNOMED Code(s): 36576212 Code(s): M33.20 - POLYMYOSITIS, ORGAN INVOLVEMENT UNSPECIFIED Status: Acute Current Visit: Yes (13) PTSD (post-traumatic stress disorder) SNOMED Code(s): 47671660 Code(s): F43.10 - POST-TRAUMATIC STRESS DISORDER, UNSPECIFIED Status: Chronic Priority: Low Current Visit: No Annotation/Comment:: Stable by history (14) RLS (restless legs syndrome) SNOMED Code(s): 10697708 Code(s): G25.81 - RESTLESS LEGS SYNDROME Status: Chronic Priority: Low Current Visit: No Annotation/Comment:: stable by history - Problem List Review Problem List Initiated/Reviewed/Updated: Yes - Assessment Assessment:: as above - Plan Plan:: As above. Patient continues to require 15L of supplemental oxygen. Nursing staff will see if he can be weaned down a bit and maintain O2 sats in high 80s. Continue Dexamethasone. Observe BP trends. Uncertain how many days patient will require inpatient treatment. Anticipate minimum of 3-4 days additional inpatient stay given severity of Covid related symptoms. Recheck labs and chest xray in AM.
[2020-12-16 14:04] LABS: ANION GAP 10.3 meq/L (7-15); CHLORIDE,CL 106 mmol/L (98-107); SODIUM,NA 139 mmol/L (136-145)
[2020-12-16] MEDS ORDERED: REMDESIVIR 100 MG in Sodium Chloride 0.9% 100 ML IV SCH (15:00)
[2020-12-16] MEDS: Sodium Chloride 0.9% 10 ML Syringe FLUSH SCH ×2 (16:12→20:11)
[2020-12-16] MEDS ORDERED: Albuterol 6.7 GM Inhaler INH PRN (19:29)
[2020-12-16] MEDS ORDERED: Albuterol/Ipratropium 3.0-0.5 MG/3 ML Neb Soln NEB SCH (20:00)
[2020-12-16] MEDS: Fluticasone Propionate Nasal Spray 16 GM Bottle NASBOTH SCH (20:03)
[2020-12-16] MEDS ORDERED: Sodium Chloride 0.9% 10 ML Syringe FLUSH PRN (20:12)
--- NOTE | 2020-12-16 21:16 | PCM.DCSUM1 ---
Discharge Summary - Hospital Course Brief History: Patient admitted for treatment of significant hypoxemia associated with acute Covid infection Diagnosis: Stroke: No - Discharge Data Discharge Date: 12/16/20 Discharge Disposition: DC/Tfer to Acute Hospital 02 Condition: Good - Referral to Home Health Primary Care Physician: PCP None - Discharge Diagnosis/Problem(s) (1) COVID-19 SNOMED Code(s): 404227008 ICD Code: U07.1 - COVID-19 Status: Acute Priority: High Current Visit: No Problem Details: Acute Covid-19 infection. Receiving Dexamethasone. IV Bamlanivimab and Remdesivir. Supplemental O2. (2) Hypoxemia requiring supplemental oxygen SNOMED Code(s): 583793310 ICD Code: R09.02 - HYPOXEMIA; Z99.81 - DEPENDENCE ON SUPPLEMENTAL OXYGEN Status: Acute Priority: High Current Visit: Yes Problem Details: Receiving 15L via non-rebreather mask this morning. Regular DuoNebs/Dexamethasone scheduled. (3) Essential hypertension SNOMED Code(s): 36781614 ICD Code: I10 - ESSENTIAL (PRIMARY) HYPERTENSION Status: Chronic Priority: Medium Current Visit: Yes Problem Details: Has been running a bit lower BPs since admission. 90-110/50s. BP meds put on hold earlier today (4) Coronary artery disease SNOMED Code(s): 72827147 ICD Code: I25.10 - ATHSCL HEART DISEASE OF [place] CORONARY ARTERY W/O ANG PCTRS Status: Chronic Priority: Low Current Visit: No Problem Details: No chest pain/anginal complaints. Qualifiers: Coronary Disease-Associated Artery/Lesion type: bypass graft [place] vs. transplanted heart: [place] heart Associated angina: unspecified whether angina present Qualified Code(s): I25.810 - Atherosclerosis of coronary artery bypass graft(s) without angina pectoris (5) GERD (gastroesophageal reflux disease) SNOMED Code(s): 503845364 ICD Code: K21.9 - GASTRO-ESOPHAGEAL REFLUX DISEASE WITHOUT ESOPHAGITIS Status: Chronic Priority: Low Current Visit: No Problem Details: Stable by history Qualifiers: Esophagitis presence: esophagitis presence not specified Qualified Code(s): K21.9 - Gastro-esophageal reflux disease without esophagitis (6) Sleep apnea SNOMED Code(s): 47982360 ICD Code: G47.30 - SLEEP APNEA, UNSPECIFIED Status: Acute Priority: Low Current Visit: No Problem Details: Has CPAP device with him. Qualifiers: Sleep apnea type: unspecified type Qualified Code(s): G47.30 - Sleep apnea, unspecified (7) Hyperlipemia SNOMED Code(s): 28500333 ICD Code: E78.5 - HYPERLIPIDEMIA, UNSPECIFIED Status: Chronic Priority: Low Current Visit: No Problem Details: Under therapy Qualifiers: Hyperlipidemia type: unspecified Qualified Code(s): E78.5 - Hyperlipidemia, unspecified (8) Osteoarthritis SNOMED Code(s): 976021451 ICD Code: M19.90 - UNSPECIFIED OSTEOARTHRITIS, UNSPECIFIED SITE Status: Chronic Priority: Low Current Visit: No Problem Details: Stable by history Qualifiers: Osteoarthritis location: unspecified site (9) Fibromyalgia SNOMED Code(s): 982639097 ICD Code: M79.7 - FIBROMYALGIA Status: Chronic Priority: Low Current Visit: No Problem Details: stable by history (10) Hearing loss SNOMED Code(s): 77611845 ICD Code: H91.90 - UNSPECIFIED HEARING LOSS, UNSPECIFIED EAR Status: Chronic Priority: Low Current Visit: No Qualifiers: Hearing loss type: unspecified (11) Obesity SNOMED Code(s): 701960894, 066557014 ICD Code: E66.9 - OBESITY, UNSPECIFIED Status: Chronic Priority: Low Current Visit: No Qualifiers: Obesity type: unspecified obesity type (12) Polymyositis SNOMED Code(s): 82569657 ICD Code: M33.20 - POLYMYOSITIS, ORGAN INVOLVEMENT UNSPECIFIED Status: Acute Current Visit: Yes (13) PTSD (post-traumatic stress disorder) SNOMED Code(s): 73821818 ICD Code: F43.10 - POST-TRAUMATIC STRESS DISORDER, UNSPECIFIED Status: Chronic Priority: Low Current Visit: No Problem Details: Stable by history (14) RLS (restless legs syndrome) SNOMED Code(s): 18812050 ICD Code: G25.81 - RESTLESS LEGS SYNDROME Status: Chronic Priority: Low Current Visit: No Problem Details: stable by history - Patient Summary/Data Hospital Course: Patient continued to require high flow O2. Received Bamlanivimab and Remdesivir. DuoNebs and Dexamethasone ordered. BP remained a bit low and HTN meds placed on hold today. O2 sats noted to fall throughout day towards lower 80s. O2 connected to patient's CPAP and things improved briefly after this intervention and a DuoNeb. However oxygen sats again started to fall. Patient currently often dropping below 85%. It was determined patient would benefit from higher level of care. Call placed to [facility] and patient accepted for transfer by . - Discharge Plan Home Medications: Home Meds Aspirin 325 mg PO DAILY 06/11/17 [History] Meloxicam 15 mg PO DAILY 06/11/17 [History] Pramipexole [Mirapex] 1 mg PO BID 06/11/17 [History] Rosuvastatin [Crestor] 20 mg PO DAILY 06/11/17 [History] Omeprazole 20 mg PO DAILY 08/04/20 [History] Budesonide/Formoterol Fumarate [Symbicort 80-4.5 MCG] 2 puff INH BEDTIME 12/15/20 [History] Fluticasone Propionate [Flovent] 2 spray NASBOTH BEDTIME 12/15/20 [History] Isosorbide Mononitrate [Imdur] 30 mg PO DAILY 12/15/20 [History] Nitroglycerin 1 tab SL ASDIRECTED PRN 12/15/20 [History] amLODIPine [Norvasc] 10 mg PO DAILY 12/15/20 [History] predniSONE [Prednisone] 7.5 mg PO DAILY 12/15/20 [History] - Discharge Summary/Plan Comment DC Time >30 min.: No Total # of Minutes for Discharge Time: 60 - Patient Data Vitals - Most Recent: Last Vital Signs Temp 36.4 C 12/16/20 20:00 Pulse 61 12/16/20 20:00 Resp 24 H 12/16/20 20:00 BP 122/58 L 12/16/20 20:00 Pulse Ox 94 L 12/16/20 20:17 Weight - Most Recent: 96.615 kg I&O - Last 24 hours: Intake & Output 12/16/20 12/16/20 12/16/20 06:59 14:59 22:59 Intake Total 460 Balance 460 Lab Results - Last 24 hrs: Laboratory Results - last 24 hr 12/16/20 Range/Units 13:33 Sodium 139 (136-145) mmol/L Potassium 4.0 (3.5-5.1) mmol/L Chloride 106 (98-107) mmol/L Carbon Dioxide 22.7 (21.0-32.0) mmol/L Anion Gap 10.3 (7-15) meq/L BUN 23 H (7-18) mg/dL Creatinine 0.98 (0.51-1.17) mg/dL Est Cr Clr Drug Dosing 67.13 mL/min Estimated GFR (MDRD) > 60 mL/min Glucose 162 H (70-99) mg/dL Calcium 8.6 (8.5-10.1) mg/dL Total Bilirubin 0.8 (0.2-1.0) mg/dL Direct Bilirubin 0.2 (0.0-0.2) mg/dL AST 60 H (15-37) U/L ALT 43 (12-78) U/L Alkaline Phosphatase 59 (46-116) IU/L Total Protein 6.6 (6.4-8.2) g/dL Albumin 2.8 L (3.4-5.0) g/dL Med Orders - Current: Current Medications Acetaminophen (Acetaminophen 325 Mg Tab) 650 mg PO Q4H PRN PRN Reason: analgesia/fever Last Admin: 12/16/20 20:04 Dose: 650 mg Documented by: Albuterol (Albuterol 6.7 Gm Inhaler) 0 gm INH Q2H PRN PRN Reason: Shortness of Breath Albuterol/Ipratropium (Albuterol/Ipratropium 3.0-0.5 Mg/3 Ml Neb Soln) 3 ml NEB Q4HRRT [facility] Last Admin: 12/16/20 20:03 Dose: 3 ml Documented by: Amlodipine Besylate (Amlodipine 5 Mg Tab) 10 mg PO DAILY [facility] Last Admin: 12/16/20 08:21 Dose: 10 mg Documented by: Benzonatate (Benzonatate 100 Mg Cap) 100 mg PO TID@0800,1400,2000 [facility] Last Admin: 12/16/20 20:04 Dose: 100 mg Documented by: Calcium Carbonate/Glycine (Calcium Carbonate 500 Mg Tab.Chew) 500 mg PO Q4H PRN PRN Reason: Dyspepsia Dexamethasone (Dexamethasone 2 Mg Tab) 6 mg PO DAILY [facility] Last Admin: 12/16/20 08:24 Dose: 6 mg Documented by: Enoxaparin Sodium (Enoxaparin 40 Mg/0.4 Ml Syringe) 40 mg SUBCUT Q12HR [facility] Last Admin: 12/16/20 20:04 Dose: 40 mg Documented by: Fluticasone Propionate (Fluticasone Propionate Nasal [place] 16 Gm Bottle) 0 gm NASBOTH BEDTIME [facility] Last Admin: 12/16/20 20:03 Dose: Not Given Documented by: Guaifenesin (Guaifenesin 600 Mg Tab.Er) 600 mg PO Q12HR [facility] Last Admin: 12/16/20 20:04 Dose: 600 mg Documented by: Remdesivir 100 mg/ Sodium (Chloride) 100 mls @ 100 mls/hr IV Q24H [facility] Stop: 12/19/20 15:59 Last Admin: 12/16/20 15:01 Dose: 100 mls/hr Documented by: Isosorbide Mononitrate (Isosorbide Mononitrate 30 Mg Tab.Er) 30 mg PO DAILY [facility] Last Admin: 12/16/20 08:23 Dose: 30 mg Documented by: Meloxicam (Meloxicam 15 Mg Tab) 15 mg PO DAILY [facility] Last Admin: 12/16/20 08:22 Dose: 15 mg Documented by: Nitroglycerin (Nitroglycerin 0.4 Mg Tab.Sl) 0.4 mg SL ASDIRECTED PRN PRN Reason: Chest Pain Omeprazole (Omeprazole 20 Mg Cap.Cr) 20 mg PO DAILY [facility] Last Admin: 12/16/20 08:23 Dose: 20 mg Documented by: Pramipexole Dihydrochloride (Pramipexole 1 Mg Tab) 1 mg PO BID@0800,2000 [facility] Last Admin: 12/16/20 20:04 Dose: 1 mg Documented by: Rosuvastatin Calcium (Rosuvastatin 10 Mg Tab) 20 mg PO DAILY [facility] Last Admin: 12/16/20 08:22 Dose: 20 mg Documented by: Sodium Chloride (Sodium Chloride 0.9% 10 Ml Syringe) 10 ml FLUSH ASDIRECTED PRN PRN Reason: Keep Vein Open Discontinued Medications Albuterol/Ipratropium (Albuterol/Ipratropium 4 Gm Inhalation [place]) 1 gm INH QID [facility] Last Admin: 12/16/20 16:09 Dose: 1 inhalation Documented by: Enoxaparin Sodium (Enoxaparin 40 Mg/0.4 Ml Syringe) 40 mg SUBCUT ONETIME ONE Stop: 12/15/20 15:01 Last Admin: 12/15/20 15:13 Dose: 40 mg Documented by: Guaifenesin (Guaifenesin 600 Mg Tab.Er) 600 mg PO ONETIME ONE Stop: 12/15/20 16:01 Last Admin: 12/15/20 16:27 Dose: 600 mg Documented by: Bamlanivimab 700 mg/Etesevimab 1,400 mg/ Sodium Chloride 310 mls @ 310 mls/hr IV ONETIME ONE Stop: 12/15/20 12:29 Last Admin: 12/15/20 14:17 Dose: Not Given Documented by: Remdesivir 200 mg/ Sodium (Chloride) 250 mls @ 250 mls/hr IV ONETIME ONE Stop: 12/15/20 15:59 Last Admin: 12/15/20 15:13 Dose: 250 mls/hr Documented by: Sodium Chloride (Sodium Chloride 0.9% 10 Ml Syringe) 30 ml FLUSH ASDIRECTED [facility] Last Admin: 12/16/20 20:11 Dose: 10 ml Documented by:
[2020-12-17] MEDS ORDERED: Sodium Chloride 0.9% 10 ML Syringe FLUSH SCH (08:00)
== END 2020-12-16 22:20 | DRG 178 ==
LOC: LL.ACU 11:17 → LL.MS 13:00
PROVIDERS: ADMIT Family Medicine; ATTEND Family Medicine
PROC: XW033F6 Introduction of Bamlanivimab Monoclonal Antibody into Peripheral Vein, Percutaneous Approach, New Technology Group 6 (ICD-10-PCS; principal; 2020-12-15)
PROC: XW033E5 Introduction of Remdesivir Anti-infective into Peripheral Vein, Percutaneous Approach, New Technology Group 5 (ICD-10-PCS; 2020-12-15)
PROC: 3E0DX3Z Introduction of Anti-inflammatory into Mouth and Pharynx, External Approach (ICD-10-PCS; 2020-12-15)
DX: U07.1 COVID-19 (principal); I25.810 Atherosclerosis of coronary artery bypass graft(s) without angina pectoris; M33.20 Polymyositis, organ involvement unspecified; Z99.81 Dependence on supplemental oxygen; I10 Essential (primary) hypertension; K21.9 Gastro-esophageal reflux disease without esophagitis; G47.30 Sleep apnea, unspecified; E78.5 Hyperlipidemia, unspecified; M19.90 Unspecified osteoarthritis, unspecified site; M79.7 Fibromyalgia; H91.90 Unspecified hearing loss, unspecified ear; E66.9 Obesity, unspecified; F43.10 Post-traumatic stress disorder, unspecified; G25.81 Restless legs syndrome; Z79.82 Long term (current) use of aspirin; Z79.52 Long term (current) use of systemic steroids; Z23 Encounter for immunization; Z79.899 Other long term (current) drug therapy; H54.7 Unspecified visual loss; I25.2 Old myocardial infarction; R09.02 Hypoxemia
CPT/HCPCS: 36415; 80053; 82248; 85025; 85610; 94640; 94761; 99223; 99238; A9270-GY; J1650; J7050; J7620-GY; J8540